=== PATIENT | male | born 1930 | race Caucasian/White ===

== ENCOUNTER 2016-12-09 06:57 | Emergency (ER) | payer OTHER, MEDICARE ==
[~2016-12-09] VITALS: Ht 182.9 cm; Wt 68.0 kg
[~2016-12-09 06:57] MED LIST: ANTIVERT 12.512.5 M1 PO; ASPIRIN81 M4 PO; GLIPIZIDE ER2.5 M1 PO; GLIPIZIDE XL2.5 M1 PO; PREDNISONE 1 MG1 MG PO; PREDNISONE1 MG PO; VITAMIN B-121000 MC3 PO; VITAMIN D1000 UNIT PO
--- NOTE | 2016-12-09 07:09 | ED HEADACHE COMPLAINT ---
History of Present Illness General Chief Complaint: Headache Stated Complaint: "MY HEAD HURTS,DIZZY" Source: patient, family, old records Exam Limitations: no limitations Allergies Coded Allergies: NO KNOWN ALLERGIES (04/22/15) Reconcile Medications Aspirin (Aspirin*) 81 MG TAB.CHEW 1 TAB PO DAILY HEART HEALTH (Reported) Cholecalciferol (Vitamin D3) (Vitamin D) 1,000 UNIT TABLET 1 TAB PO DAILY SUPPLEMENT (Reported) Cyanocobalamin (Vitamin B-12) 1,000 MCG TABLET 1 TAB PO DAILY SUPPLEMENT ( Reported) Glipizide (Glipizide XL) 2.5 MG TAB.ER.24 1 TAB PO BID DIABETES (Reported) Glipizide (Glipizide ER) 2.5 MG TAB.ER.24 1 TAB PO DAILY DIABETES (Reported) Prednisone 1 MG TABLET 3 TAB PO DAILY STEROID (Reported) Triage Note: PT C/O HEADACHE X 2-3 DAYS. STATES HE HAS TROUBLE WALKING SINCE THE ONSET OF THE HEAD PAIN. NEUROS INTACT AT TRIAGE. PT STATES HE HASN'T TRIED ANY OTC PAIN MEDS FOR H/A Triage Nurses Notes Reviewed? yes HPI: Mr. Sharma is an 86-year-old gentleman with past medical history of diabetes and polymyalgia who presents to the emergency department stating that he does not feel right. He also claims that he has felt "out of sorts" over the last 48 hours. The patient states that he was in his normal state of health up until 48 hours ago. Over the last 48 hours he has continued to experience weakness, and gait disturbances. His reports that yesterday prior to coming in he was unsteady on his feet. The patient denies any loss of consciousness and/or head trauma. He denies any changes to his vision. Denies any nausea, vomiting, fever, chills. Patient states that his appetite has been good he has been tolerating by mouth intake well. He denies chest pain, shortness breath, dyspnea or dyspnea on exertion. He last saw his primary care physician in August of this year. (MOLLY BALES,[facility]) Vital Signs & Intake/Output Vital Signs & Intake/Output Vital Signs Date Time Temp Pulse Resp B/P B/P Pulse O2 O2 Flow FiO2 Mean Ox Delivery Rate 12/09 0941 162/80 12/09 0910 97.2 72 20 197/84 99 12/09 0702 97.3 88 20 171/76 97 Room Air Past History Travel History Traveled to [place] past 21 day No Medical History Any Pertinent Medical History? see below for history Neurological: CVA Musculoskeletal: POLYMYALGIA Endocrine: diabetes Tetanus Vaccine: 09/28/98 Surgical History Surgical History: non-contributory Psychosocial History Who do you live with Spouse Services at Home None What is your primary language Estonian Tobacco Use: Never used ETOH Use: denies use Illicit Drug Use: denies illicit drug use Family History Hx Contributory? No (MOLLY BALES,VERA) Review of Systems Review of Systems Constitutional: Denies: see HPI. (MOLLY BALES,VERA) Physical Exam Physical Exam General Appearance: well developed/nourished, no apparent distress, alert, awake Head: atraumatic, normal appearance Eyes: Bilateral: normal appearance, PERRL, EOMI. Ears, Nose, Throat: normal pharynx, normal ENT inspection Neck: normal inspection, supple Respiratory: normal breath sounds, chest non-tender, no respiratory distress Cardiovascular: regular rate/rhythm, systolic murmur (More prominent in Mitral Area) Gastrointestinal: normal bowel sounds, soft, non-tender Back: normal inspection, normal range of motion Extremities: normal inspection, normal capillary refill, normal range of motion, no edema Psychiatric: awake, alert, oriented x 3 Cranial Nerves: normal hearing, normal speech, PERRL Motor/Sensory: no motor/sensory deficits Core Measures Severe Sepsis Present: No Septic Shock Present: No (MOLLY BALES,VERA) Progress Differential Diagnosis: migraine CESAR, musculoskeletal pain Comments: Repeat blood pressure by two different providers: 165/80 and 162/80. (MOLLY BALES,VERA) Plan of Care: Orders Procedure Date/time Status Add-on Test (ER Only) 12/09 0834 Active URINALYSIS 12/09 0758 Complete THYROID STIMULATING HORMONE 12/09 0757 Complete TROPONIN LEVEL 12/09 0757 Complete GLYCOSYLATED HGB 12/09 0757 Complete COMPREHENSIVE METABOLIC PANEL 12/09 0736 Complete CBC WITHOUT DIFFERENTIAL 12/09 0736 Complete EKG 12/09 0736 Active Laboratory Tests 12/09/16 0904: Urine Color YEL, Urine Clarity CLEAR, Urine pH 6.0, Ur Specific [place] 1.015, Urine Protein NEG, Urine Ketones NEG, Urine Nitrite NEG, Urine Bilirubin NEG, Urine Urobilinogen 0.2, Ur Leukocyte Esterase NEG, Ur Microscopic EXAM NOT REQUIRED, Urine Hemoglobin NEG, Urine Glucose 100 H 12/09/16 0758: Troponin I Cancelled, TSH Cancelled 12/09/16 0757: Anion Gap 11, Estimated GFR > 60, BUN/Creatinine Ratio 18.8, Glucose 219 H, Hemoglobin A1c 7.1 H, Calcium 9.0, Total Bilirubin 0.8, AST 18, ALT 35, Alkaline Phosphatase 63, Troponin I < 0.01, Total Protein 6.1 L, Albumin 3.7, Globulin 2.4, Albumin/Globulin Ratio 1.5, TSH 2.090, CBC w Diff NO MAN DIFF REQ, RBC 4.81, MCV 88.3, MCH 29.6, RDW 14.1, MPV 8.3, Gran % 76.0 H, Lymphocytes % 14.2 L, Monocytes % 6.4, Eosinophils % 2.9, Basophils % 0.5, Absolute Granulocytes 5.5, Absolute Lymphocytes 1.0 L, Absolute Monocytes 0.5, Absolute Eosinophils 0.2, Absolute Basophils 0, PUBS MCHC 33.6 Departure Departure Disposition: HOME OR SELF CARE Condition: Stable Clinical Impression Primary Impression: Weakness generalized Referrals: MIRTHA BALES,STEPHANIE (PCP/Family) Additional Instructions: Please follow-up with your primary care physician tomorrow, 12/10/2016. Please inform your primary care physician of this visit to the emergency department. Should you experience any fever, chills, nausea, vomiting over the next 24-48 hours please come back to the emergency department for further workup. Avoid salt, caffine and decongestants. Departure Forms: Customer Survey General Discharge Information (MOLLY BALES,VERA) Resident Co-Sign Statement Statement: ED Attending supervision documentation- [X] I saw and evaluated the patient. I have also reviewed all the pertinent lab results and diagnostic results. I agree with the findings and the plan of care as documented in the Resident's documentation. [] I have reviewed the ED Record and agree with the Resident's documentation. [] Additions or exceptions (if any) to the Resident's note and plan are summarized below: [] (BRIAN BALES,ROMARIO Peterson)
[2016-12-09 08:09] LABS: ABSOLUTE BASOPHIL COUNT 0 /CUMM (0.0-0.2); ABSOLUTE EOSINOPHIL COUNT 0.2 /CUMM (0.0-0.7); ABSOLUTE GRANULOCYTE CT 5.5 /CUMM (1.4-6.5); ABSOLUTE MONOCYTE COUNT 0.5 /CUMM (0.10-0.60); BASOPHIL % 0.5 % (0.0-2.0); EOSINOPHIL % 2.9 % (0-5); HEMATOCRIT 42.5 % (42-52); MEAN CORPUSCULAR HGB 29.6 PG (27.0-31.0); MEAN CORPUSCULAR HGB CONC 33.6 G/DL (33.0-37.0); MEAN CORPUSCULAR VOLUME 88.3 FL (80.0-94.0); MEAN PLATELET VOLUME 8.3 FL (7.4-10.4); PLATELET COUNT 199 /CUMM (130-400); RBC DISTRIBUTION WIDTH 14.1 % (11.5-14.5); RED BLOOD CELL CT 4.81 /CUMM (4.70-6.10); WHITE BLOOD CELL COUNT 7.3 /CUMM (4.8-10.8)
[2016-12-09 09:41] VITALS: BP 162/80
== END 2016-12-09 10:35 ==
LOC: ERH 06:57
PROVIDERS: Student in an Organized Health Care Education/Training Program
DX: R53.1 Weakness (principal); E11.8 Type 2 diabetes mellitus with unspecified complications
CPT/HCPCS: 81003; 93005; 93010

== ENCOUNTER 2017-10-06 08:53 | Inpatient (IN) | payer OTHER, MEDICARE ==
[~2017-10-06] VITALS: Ht 180.3 cm; Wt 68.0 kg
[2017-10-06] MEDS ORDERED: LOSARTAN POTASS25 M1 PO (09:52)
--- NOTE | 2017-10-06 10:17 | RADIOLOGY REPORT ---
EXAMINATION: XR PELVIS X-RAY RIGHT HIP X-ray RIGHT KNEE X-RAY RIGHT ANKLE CLINICAL INFORMATION: Status post fall. Pain. COMPARISON: None TECHNIQUE: AP view of the pelvis. 2 views of the right hip. 4 views of the right knee and 3 views of the right ankle FINDINGS: PELVIS AND RIGHT HIP Bony osteopenia or osteoporosis. Degenerative changes lateral hips. Age indeterminate cortical irregularity noted at the right inferior pubic ramus. Faint lucency projecting upon the right acetabulum on the AP view may represent projectional change. If there is continued clinical concern, further assessment with CT scan recommended. Minor cortical irregularity femoral neck without any definite evidence of acute fracture lines. Degenerative changes lower lumbar spine. RIGHT KNEE Mild bony osteopenia. No evidence of acute fracture or dislocation. Degenerative changes with decrease joint space tibiofemoral and patellofemoral compartments. Osteophyte formations. Small joint effusion. RIGHT ANKLE Bony osteopenia. Degenerative changes medial and lateral aspects right ankle. Ankle mortise is preserved. Cortical irregularity and mild deformity lateral malleolus represents an age indeterminate finding. No acute fracture lines identified. No gross evidence of soft tissue swelling. Inferior and posterior calcaneal spurs. IMPRESSION: 1. Bony osteopenia. 2. Subtle cortical irregularities and faint lucency right hip region. Occult fracture cannot be excluded. Further assessment with CT scan may be of greater value. 3. No acute fracture identified in the right knee, right ankle. Chronic changes.
--- NOTE | 2017-10-06 10:22 | ED GENERAL ADULT ---
History of Present Illness General Chief Complaint: Lower Extremity Injury Stated Complaint: R LEG PAIN S/P FALL Source: patient, family () Exam Limitations: no limitations Vital Signs & Intake/Output Vital Signs & Intake/Output Vital Signs Date Time Temp Pulse Resp B/P B/P Pulse O2 O2 Flow FiO2 Mean Ox Delivery Rate 10/09 1006 80 150/60 10/09 0651 98.3 80 20 150/60 94 Room Air 10/08 2222 98.2 63 19 112/60 95 Room Air 10/08 1452 98.2 73 18 110/60 96 ED Intake and Output 10/09 0000 10/08 1200 Intake Total 240 490 Output Total 650 550 Balance -410 -60 Intake, IV 10 Intake, Oral 240 480 Number 0 Bowel Movements Output, Urine 650 550 Allergies Coded Allergies: No Known Allergies (10/06/17) Triage Note: PT TO ED FOR C/C OF R LOWER BACK/HIP PAIN AND R ANKLE PAIN S/P SLIP ON ICE THIS MORNING WHILE SHOVELING SNOW. PAIN IS WORSE WHEN BEARING WEIGHT. PT DECLINES PAIN MEDS IN TRIAGE. Triage Nurses Notes Reviewed? yes Onset: Abrupt Duration: hour(s): (1), constant, continues in ED Timing: single episode today Injury Environment: home Severity: moderate, severe Severity Numbers: 7 No Modifying Factors: none HPI: 87-year-old male past medical history of previous CVA, diabetes, polymyalgiA presents for evaluation after a fall. Patient states that earlier today he slipped on ice fell on his right hip. He reports pain in the right hip right knee and right ankle. The pain is worse with any type of movement or weightbearing. He states having difficulty walking. No numbness or tingling. He feels like he did not hit his head. No chest pain shortness of breath or dizziness before the fall. No abdominal pain back pain and neck pain. He is not taking any medicine for this pain. He does not take blood thinners. (Vazquez Moya) Reconcile Medications Aspirin (Aspirin*) 81 MG TAB.CHEW 1 TAB PO DAILY HEART HEALTH (Reported) Cholecalciferol (Vitamin D3) (Vitamin D) 1,000 UNIT TABLET 1 TAB PO DAILY SUPPLEMENT (Reported) Cyanocobalamin (Vitamin B-12) 1,000 MCG TABLET 1 TAB PO DAILY SUPPLEMENT ( Reported) Enoxaparin Sodium (Lovenox) 40 MG/0.4 ML SYRINGE 0.4 ML SC DAILY DVT Prophylaxis Glipizide (Glipizide XL) 2.5 MG TAB.ER.24 1 TAB PO TID DIABETES (Reported) Glipizide (Glipizide ER) 2.5 MG TAB.ER.24 1 TAB PO DAILY DIABETES (Reported) Losartan Potassium 25 MG TABLET 1 TAB PO DAILY HIGH BLOOD PRESSURE (Reported) Prednisone 1 MG TABLET 3 TAB PO DAILY STEROID (Reported) (July BALES,Gisela) Past History Travel History Traveled to [place] past 21 day No Medical History Any Pertinent Medical History? see below for history Neurological: CVA Musculoskeletal: POLYMYALGIA Endocrine: diabetes Tetanus Vaccine: 09/28/98 Surgical History Surgical History: non-contributory Psychosocial History Who do you live with Spouse Services at Home None What is your primary language [place] Tobacco Use: Never used ETOH Use: denies use Illicit Drug Use: denies illicit drug use Family History Hx Contributory? No (Vazquez Moya) Review of Systems Review of Systems Constitutional: Reports: no symptoms. EENTM: Reports: no symptoms. Respiratory: Reports: no symptoms. Cardiovascular: Reports: no symptoms. GI: Reports: no symptoms. Genitourinary: Reports: no symptoms. Musculoskeletal: Reports: see HPI, joint pain, joint swelling, muscle pain, muscle stiffness. Skin: Reports: no symptoms. Neurological/Psychological: Reports: no symptoms. Hematologic/Endocrine: Reports: no symptoms. Immunologic/Allergic: Reports: no symptoms. All Other Systems: Reviewed and Negative (Vazquez Moya) Physical Exam Physical Exam General Appearance: well developed/nourished, no apparent distress, alert, awake Head: atraumatic, normal appearance Eyes: Bilateral: normal appearance, PERRL, EOMI. Ears, Nose, Throat: normal pharynx, normal ENT inspection, hearing grossly normal Neck: normal inspection, supple, full range of motion Respiratory: normal breath sounds, chest non-tender, no respiratory distress Cardiovascular: regular rate/rhythm, normal peripheral pulses Peripheral Pulses: 2+ radial (R), 2+ radial (L) Gastrointestinal: normal bowel sounds, soft, non-tender, no organomegaly Back: normal inspection, normal range of motion, PAIN OR PALPATION OF THE SACRAL SPINE ON THE RIGHT SIDE AND PARASPINOUS MUSCLES Extremities: normal inspection, PAIN WITH PALPATION OF THE RIGHT LATERAL HIP RIGHT KNEE DIFFUSELY AND RIGHT ANKLE ON THE LATERAL ASPECT. nO OBVIOUS JOINT SWELLING OR GROSS DEFORMITY. rANGE OF MOTIONOF THE RIGHT LOWER EXTREMITY IS REDUCED DUE TO PAIN. pATIENT IS MOVING REMAINING EXTREMITIES EQUALLY. Neurologic/Psych: no motor/sensory deficits, awake, alert, oriented x 3 Skin: intact, normal color, warm/dry Lymphatic: no anterior cervical willam Core Measures ACS in differential dx? No CVA/TIA Diagnosis: No Sepsis Present: No Sepsis Focused Exam Completed? No (Cayetano PETERS,Vazquez) Progress Differential Diagnoses I considered the following diagnoses in my evaluation of the patient: [Fracture, contusion, sprain, intracranial hemorrhage] Plan of Care: Orders Procedure Date/time Status Turn and Reposition 10/10 831 Active Skin Integrity Protocol 10/10 831 Active Therapeutic Activities 10/08 UNK Complete Therapeutic Exercise 10/08 UNK Complete Gait Training 10/08 UNK Complete Current Medications Sig/Anthony Start time Last Medication Dose Stop Time Status Admin Senna 187 MG AT BEDTIME 10/09 220 AC (Senokot) Docusate Sodium 100 MG DAILY NEEDED 10/09 0700 AC 10/09 (Colace) 0554 Calcium 600 MG BID 10/07 2200 AC 10/09 (Calcium Carbonate 1006 600 MG Tab) Ergocalciferol 50,000 IU Q168 10/07 1515 AC 10/07 (Drisdol) 1737 Oxycodone/ 0.5 TAB Q6P PRN 10/07 1200 AC 10/08 Acetaminophen 1412 (Percocet) Aspirin 81 MG DAILY 10/07 1000 AC 10/09 (Aspirin) 1006 Cholecalciferol 1,000 IU DAILY 10/07 1000 AC 10/09 (Vitamin D) 1006 Cyanocobalamin 1,000 MCG DAILY 10/07 1000 AC 10/09 (Vitamin B12) 1006 Enoxaparin Sodium 40 MG DAILY 10/07 1000 AC 10/09 (Lovenox) 1007 Losartan Potassium 25 MG DAILY 10/07 1000 AC 10/09 (Cozaar) 1006 Prednisone 3 MG DAILY 10/07 1000 AC 10/09 1006 Acetaminophen 975 MG Q8P PRN 10/07 0945 AC (Tylenol) Insulin Aspart 0 TIDAC 10/06 1700 AC 10/09 (NovoLOG) 0806 Ibuprofen 400 MG Q6P PRN 10/06 1445 AC (Motrin) Patient seen and evaluated. He is here for evaluation after a fall. He has pain in his right lower extremity. X-rays are negative for fracture of the right hip right knee area right ankle. A CT scan of the pelvis shows a fracture of the sacrum and pubic ramus on the right side. Patient reported some nausea and was dry heaving. While there was no signs of trauma to the head and he denies any head strike a CT of the head was obtained to rule out trauma. This was negative. Patient is currently unable to ambulate. Normally still and really without any difficulty he was unable to lift his leg out of the bed. He is below his baseline. He is unsafe discharged as he is unable to complete his normal activities and EKG obtained. Patient did end up spiking a temperature of 100. There is no signs of infection on exam however patient does also have an elevated white blood cell count. A portable chest x-ray was added on. Flu swab added on. Patient will be admitted to the hospital for further evaluation and treatment. He'll require physical therapy, serial labs, monitoring of vital signs, case management and placement into an acute rehabilitation. Case discussed with Dr. Mcdowell she agrees. Diagnostic Imaging: Viewed by Me: Radiology Read, CT Scan. Discussed w/RAD: Radiology Read, CT Scan. Radiology Impression: PATIENT: RAMAKRISHNA DYSON PRESENT AGE: 87 PATIENT ACCOUNT NO: [id number] : [birth year] LOCATION: [facility] ORDERING PHYSICIAN: Vazquez PETERS SERVICE DATE: 10/06/17 EXAM TYPE: RAD - XRY-ANKLE 3 OR MORE VIEWS R; XRY-AP PELVIS; XRY-HIP 2-3 VIEWS, RIGHT; XRY-KNEE COMPLETE RIGHT EXAMINATION: XR PELVIS X-RAY RIGHT HIP X-ray RIGHT KNEE X-RAY RIGHT ANKLE CLINICAL INFORMATION: Status post fall. Pain. COMPARISON: None TECHNIQUE: AP view of the pelvis. 2 views of the right hip. 4 views of the right knee and 3 views of the right ankle FINDINGS: PELVIS AND RIGHT HIP Bony osteopenia or osteoporosis. Degenerative changes lateral hips. Age indeterminate cortical irregularity noted at the right inferior pubic ramus. Faint lucency projecting upon the right acetabulum on the AP view may represent projectional change. If there is continued clinical concern, further assessment with CT scan recommended. Minor cortical irregularity femoral neck without any definite evidence of acute fracture lines. Degenerative changes lower lumbar spine. RIGHT KNEE Mild bony osteopenia. No evidence of acute fracture or dislocation. Degenerative changes with decrease joint space tibiofemoral and patellofemoral compartments. Osteophyte formations. Small joint effusion. RIGHT ANKLE Bony osteopenia. Degenerative changes medial and lateral aspects right ankle. Ankle mortise is preserved. Cortical irregularity and mild deformity lateral malleolus represents an age indeterminate finding. No acute fracture lines identified. No gross evidence of soft tissue swelling. Inferior and posterior calcaneal spurs. IMPRESSION: 1. Bony osteopenia. 2. Subtle cortical irregularities and faint lucency right hip region. Occult fracture cannot be excluded. Further assessment with CT scan may be of greater value. 3. No acute fracture identified in the right knee, right ankle. Chronic changes. DICTATED BY: Alma Beauchamp MD DATE/ TIME DICTATED:10/06/17999 OVEREDGE SEWER:SACHIN DATE/TIME TRANSCRIBED: 10/06/17999 CONFIDENTIAL, DO NOT COPY WITHOUT APPROPRIATE AUTHORIZATION., PATIENT: RAMAKRISHNA DYSON PRESENT AGE: 87 PATIENT ACCOUNT NO: [id number] : [birth year] LOCATION: [facility] ORDERING PHYSICIAN: Vazquez PETERS SERVICE DATE: 10/06/17 EXAM TYPE: CAT - CT PELVIS WO IV CONTRAST EXAMINATION: CT PELVIS WITHOUT CONTRAST CLINICAL INFORMATION: Evaluate for occult fracture. COMPARISON: X-ray pelvis and right hip also dated 10/06/2017. TECHNIQUE: Helical scanning was performed with submillimeter collimation through the pelvis. Sagittal and coronal multiplanar 2-D reconstructions were obtained. DLP: 400.58 mGy-cm FINDINGS: PELVIS: No acute intrapelvic pathology. Mild soft tissue swelling/hematoma noted in the medial pelvic soft tissues adjacent to the right inferior pubic ramus . (Series 3 image 33). Atherosclerotic disease with intimal calcification of the aorta and iliac arteries. Mildly enlarged prostate gland. Visualized bowel loops do not demonstrate acute abnormality.. OSSEOUS STRUCTURES: Comminuted mildly displaced and slightly angulated fracture noted in the right inferior pubic ramus (series 2 image 345-3 65). Subtle acute fracture anterior lateral right sacral ala (series 2 image 147). Subtle age indeterminate cortical step off noted in the right acetabulum pubic junction (series 2 image 287). Age indeterminate cortical irregularity superior aspect body of the right pubic bone adjacent to the symphysis pubis. (Series 601 image 52) Degenerative changes bilateral hips. No evidence of acute fracture right femoral neck or intertrochanteric region. Probable chronic ossific density adjacent to the posterior acetabulum (series 2 image 274) IMPRESSION: 1. Acute fractures involving right inferior pubic ramus and anterior right sacral ala. 2. Age indeterminate subtle cortical step off right acetabulum pubic junction. 3. Age indeterminate cortical irregularity superior aspect body of the right pubic bone adjacent to the symphysis pubis. 4. Small hematoma medial pelvic soft tissues adjacent to the right inferior pubic ramus. DICTATED BY: Alma Beauchamp MD DATE/ TIME DICTATED:10/06/171108 OVEREDGE SEWER:SACHIN DATE/TIME TRANSCRIBED: 10/06/171108 CONFIDENTIAL, DO NOT COPY WITHOUT APPROPRIATE AUTHORIZATION., PATIENT: RAMAKRISHNA DYSON PRESENT AGE: 87 PATIENT ACCOUNT NO: [id number] : [birth year] LOCATION: [facility] ORDERING PHYSICIAN: Vazquez PETERS SERVICE DATE: 10/06/17 EXAM TYPE: CAT - CT CERV SPINE WO IV CONTRAST ; CT HEAD WO IV CONTRAST EXAMINATION: CT HEAD WITHOUT CONTRAST CT CERVICAL SPINE WITHOUT CONTRAST CLINICAL INFORMATION: Fall. Unknown head strike. Now vomiting. COMPARISON: Head CT 02/01/2009 and 02/11/2016. TECHNIQUE: CT of the head and cervical spine were performed without intravenous contrast. Multiplanar reformats were rendered and reviewed. DLP: 942 mGy-cm. FINDINGS: CT head: There is no intracranial hemorrhage, extra-axial collection, or calvarial fracture. There is no acute infarct or mass. There is moderate confluent and patchy hypoattenuation in the bilateral cerebral white matter compatible with moderate small vessel ischemic changes. There is an old infarct in the right cerebellum. There is mild diffuse brain parenchymal volume loss with prominence of the ventricles and sulci. The paranasal sinuses and mastoid air cells are clear. There are degenerative changes at the temporomandibular joints. CT cervical spine: The cervical vertebral body heights are maintained. There is trace anterolisthesis of C4 on C5. No fracture is seen. The craniocervical junction is intact with degenerative changes noted. There is multilevel degenerative change with intervertebral disc height loss, endplate spurring, and uncovertebral and facet arthropathy. Disc height loss is most pronounced at C4-C5, C5-C6, and C6- C7. There is prominent anterior osteophytic spurring extending from C4 to C7. Facet arthropathy is most advanced on the right at C2-C3 and C3-C4 and on the left at C3-C4 and C6-C7. There is no high-grade osseous encroachment on the spinal canal. There is multilevel neural foraminal stenosis which is severe at multiple levels. The lung apices are clear. There are atheromatous changes involving the carotid arteries. IMPRESSION: CT head: No acute intracranial abnormality. Moderate small vessel ischemic changes. Old right cerebellar infarct. CT cervical spine: No cervical spine fracture or tobacco malalignment. Multilevel degenerative spondylotic changes without high-grade osseous encroachment on the spinal canal. DICTATED BY: Ana Garrett MD DATE/TIME DICTATED:10/06/171314 OVEREDGE SEWER:SACHIN DATE/TIME TRANSCRIBED:1314 CONFIDENTIAL, DO NOT COPY WITHOUT APPROPRIATE AUTHORIZATION. Initial ED EKG: SINUS TACHYCARDIA RATE 108, MULTIFOCAL pvc, RBBB (Cayetano PETERS,Vazquez) Departure Departure Disposition: STILL A PATIENT Condition: Stable Clinical Impression Primary Impression: Fracture of pubic ramus Qualifiers: Encounter type: initial encounter Fracture type: closed Laterality: right Qualified Code: S32.591A - Other specified fracture of right pubis, initial encounter for closed fracture Secondary Impressions: Gait instability Sacral fracture Qualifiers: Encounter type: initial encounter Zone of sacrum fracture: unspecified portion of sacrum Fracture type: closed Qualified Code: S32.10XA - Unspecified fracture of sacrum, initial encounter for closed fracture Referrals: Wendy Hidalgo MD (PCP/Family) Departure Forms: Customer Survey General Discharge Information Admission Note Spoke With: Lc BALES,Amy Documentation of Exam: Documentation of any treatments & extenuating circumstances including Concerns Regarding Discharge (functional status, medication knowledge or non-compliance, living conditions, etc.) that warrant an admission rather than observation: [ Patient is currently unable to ambulate after falling and fracturing his pubic rami on the right side and his sacrum on the right side. Patient is not safe to go home. He is not able to complete his ADLs. Additionally patient has an elevated white blood cell count had a low-grade temp of 100. There is no obvious signs of infection on exam. Patient will require physical therapy, serial labs, occupational therapy, case management, pain control] (Vazquez Moya) Departure Prescriptions: Current Visit Scripts Enoxaparin Sodium (Lovenox) 0.4 ML SC DAILY #30 SYR PA/SHELL GRADER Co-Sign Statement Statement: ED Attending supervision documentation- [X] I saw and evaluated the patient. I have also reviewed all the pertinent lab results and diagnostic results. I agree with the findings and the plan of care as documented in the PA's/SHELL GRADER's documentation. [X] I have reviewed the ED Record and agree with the PA's/SHELL GRADER's documentation. [] Additions or exceptions (if any) to the PAs/SHELL GRADER's note and plan are summarized below: [] (July BALES,Gisela) Critical Care Note Critical Care Note Critical Care Time: non-applicable (Vazquez Moya)
--- NOTE | 2017-10-06 11:42 | CT SCAN REPORT ---
EXAMINATION: CT PELVIS WITHOUT CONTRAST CLINICAL INFORMATION: Evaluate for occult fracture. COMPARISON: X-ray pelvis and right hip also dated 10/06/2017. TECHNIQUE: Helical scanning was performed with submillimeter collimation through the pelvis. Sagittal and coronal multiplanar 2-D reconstructions were obtained. DLP: 400.58 mGy-cm FINDINGS: PELVIS: No acute intrapelvic pathology. Mild soft tissue swelling/hematoma noted in the medial pelvic soft tissues adjacent to the right inferior pubic ramus . (Series 3 image 33). Atherosclerotic disease with intimal calcification of the aorta and iliac arteries. Mildly enlarged prostate gland. Visualized bowel loops do not demonstrate acute abnormality.. OSSEOUS STRUCTURES: Comminuted mildly displaced and slightly angulated fracture noted in the right inferior pubic ramus (series 2 image 345-3 65). Subtle acute fracture anterior lateral right sacral ala (series 2 image 147). Subtle age indeterminate cortical step off noted in the right acetabulum pubic junction (series 2 image 287). Age indeterminate cortical irregularity superior aspect body of the right pubic bone adjacent to the symphysis pubis. (Series 601 image 52) Degenerative changes bilateral hips. No evidence of acute fracture right femoral neck or intertrochanteric region. Probable chronic ossific density adjacent to the posterior acetabulum (series 2 image 274) IMPRESSION: 1. Acute fractures involving right inferior pubic ramus and anterior right sacral ala. 2. Age indeterminate subtle cortical step off right acetabulum pubic junction. 3. Age indeterminate cortical irregularity superior aspect body of the right pubic bone adjacent to the symphysis pubis. 4. Small hematoma medial pelvic soft tissues adjacent to the right inferior pubic ramus.
[2017-10-06 12:28] LABS: ABSOLUTE BASOPHIL COUNT 0 /CUMM (0.0-0.2); ABSOLUTE EOSINOPHIL COUNT 0 /CUMM (0.0-0.7); ABSOLUTE GRANULOCYTE CT 15.9 /CUMM (1.4-6.5); ABSOLUTE LYMPH COUNT 0.9 /CUMM (1.2-3.4); ABSOLUTE MONOCYTE COUNT 0.8 /CUMM (0.10-0.60); BASOPHIL % 0.2 % (0.0-2.0); EOSINOPHIL % 0.1 % (0-5); GRANULOCYTE % 90.4 % (42.2-75.2); HEMATOCRIT 42.9 % (42-52); MEAN CORPUSCULAR HGB 29.7 PG (27.0-31.0); MEAN CORPUSCULAR HGB CONC 34.3 G/DL (33.0-37.0); MEAN CORPUSCULAR VOLUME 86.8 FL (80.0-94.0); PLATELET COUNT 176 /CUMM (130-400); RED BLOOD CELL CT 4.94 /CUMM (4.70-6.10); WHITE BLOOD CELL COUNT 17.6 /CUMM (4.8-10.8)
--- NOTE | 2017-10-06 13:30 | CT SCAN REPORT ---
EXAMINATION: CT HEAD WITHOUT CONTRAST CT CERVICAL SPINE WITHOUT CONTRAST CLINICAL INFORMATION: Fall. Unknown head strike. Now vomiting. COMPARISON: Head CT 02/01/2009 and 02/11/2016. TECHNIQUE: CT of the head and cervical spine were performed without intravenous contrast. Multiplanar reformats were rendered and reviewed. DLP: 942 mGy-cm. FINDINGS: CT head: There is no intracranial hemorrhage, extra-axial collection, or calvarial fracture. There is no acute infarct or mass. There is moderate confluent and patchy hypoattenuation in the bilateral cerebral white matter compatible with moderate small vessel ischemic changes. There is an old infarct in the right cerebellum. There is mild diffuse brain parenchymal volume loss with prominence of the ventricles and sulci. The paranasal sinuses and mastoid air cells are clear. There are degenerative changes at the temporomandibular joints. CT cervical spine: The cervical vertebral body heights are maintained. There is trace anterolisthesis of C4 on C5. No fracture is seen. The craniocervical junction is intact with degenerative changes noted. There is multilevel degenerative change with intervertebral disc height loss, endplate spurring, and uncovertebral and facet arthropathy. Disc height loss is most pronounced at C4-C5, C5-C6, and C6-C7. There is prominent anterior osteophytic spurring extending from C4 to C7. Facet arthropathy is most advanced on the right at C2-C3 and C3-C4 and on the left at C3-C4 and C6-C7. There is no high-grade osseous encroachment on the spinal canal. There is multilevel neural foraminal stenosis which is severe at multiple levels. The lung apices are clear. There are atheromatous changes involving the carotid arteries. IMPRESSION: CT head: No acute intracranial abnormality. Moderate small vessel ischemic changes. Old right cerebellar infarct. CT cervical spine: No cervical spine fracture or tobacco malalignment. Multilevel degenerative spondylotic changes without high-grade osseous encroachment on the spinal canal.
--- NOTE | 2017-10-06 13:46 | History & Physical ---
Jacki BALES,Vazquez 10/06/17 1345: General Information and HPI History of Present Illness: Mr. 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 The patient does not remember the incident very well. He does know that he was shoveling snow this morning and then fell as a consequence of that. He denies any prodromal nausea, vomiting, or other symptoms. He does not believe he lost consciousness or struke his head. His did not witness the fall but did hear him holler when he fell. When she looked out the window, she believes he was on his left side. The patient further denies any chest pain, palpitations, shortness of breath, abd pain, headache, numbness, tingling, or dizziness. He does endorse some right hip/leg pain. He says that he could walk immediately after the fall but now does not believe he could. The patient is a lifetime nonsmoker and does not consume alcohol or recreational drugs. Allergies/Medications Allergies: Coded Allergies: No Known Allergies (10/06/17) Past History Travel History Traveled to [place] past 21 day No Medical History Neurological: CVA Musculoskeletal: POLYMYALGIA Endocrine: diabetes Tetanus Vaccine: 09/28/98 Surgical History Surgical History: non-contributory Past Family/Social History Psychosocial History Services at Home: None Smoking Status: Never Smoked ETOH Use: denies use Illicit Drug Use: denies illicit drug use Review of Systems Review of Systems Constitutional: Reports: no symptoms. EENTM: Reports: no symptoms. Cardiovascular: Reports: no symptoms. Respiratory: Reports: no symptoms. GI: Reports: no symptoms. Genitourinary: Reports: no symptoms. Musculoskeletal: Reports: see HPI. Skin: Reports: no symptoms. Neurological/Psychological: Reports: no symptoms. Hematologic/Endocrine: Reports: no symptoms. Immunologic/Allergic: Reports: no symptoms. All Other Systems: Reviewed and Negative Exam & Diagnostic Data Last 24 Hrs of Vital Signs/I&O Vital Signs Date Time Temp Pulse Resp B/P B/P Pulse O2 O2 Flow FiO2 Mean Ox Delivery Rate 10/06 1203 98.2 10/06 1202 100.0 94 20 140/76 94 Room Air 10/06 1100 70 20 150/66 96 Room Air 10/06 0949 Room Air 10/06 0856 96.0 77 15 142/68 95 Room Air Room Air Intake & Output 10/06 1600 10/06 0800 03 0000 Intake Total 60 Output Total 200 Balance -140 Intake, Oral 60 Output, Urine 200 Patient 70.307 kg Weight Weight Reported by Patient Measurement Method Physical Exam General Appearance Alert, Oriented X3, Cooperative, No Acute Distress Skin No Rashes, No Breakdown, No Significant Lesion Cardiovascular tachycardic Lungs Clear to Auscultation Abdomen Normal Bowel Sounds, Soft, No Tenderness Neurological Normal Speech Extremities Tenderness over bony prominances of hip on right. Unable to lift either leg on straight leg exam. Declined walking exam at this time. Vascular Normal Pulses, Pulses Symmetrical Last 24 Hrs of Labs/Tim: Laboratory Tests 10/06/17 1217: Urinalysis LIGHT H, Urine Color YEL, Urine Clarity CLEAR, Urine pH 6.0, Ur Specific [place] 1.020, Urine Protein TRACE H, Urine Ketones 15 H, Urine Nitrite NEG, Urine Bilirubin NEG, Urine Urobilinogen 1.0, Ur Leukocyte Esterase NEG, Ur Microscopic SEDIMENT EXAMINED, Urine RBC RARE, Urine WBC 1-3 H, Ur Epithelial Cells RARE, Urine Bacteria FEW H, Hyaline Casts RARE H, Urine Mucus MOD H, Urine Hemoglobin NEG, Urine Glucose NEG 10/06/17 1215: Anion Gap 12, Estimated GFR > 60, BUN/Creatinine Ratio 22.9, Glucose 173 H, Calcium 9.5, Total Bilirubin 1.3, AST 34, ALT 46, Alkaline Phosphatase 84, Troponin I 0.01, Total Protein 6.2 L, Albumin 3.9, Globulin 2.3, Albumin/ Globulin Ratio 1.7, Lipase 171, CBC w Diff MAN DIFF ORDERED, RBC 4.94, MCV 86.8, MCH 29.7, MCHC 34.3, RDW 14.0, MPV 8.0, Gran % 90.4 H, Lymphocytes % 4.9 L, Monocytes % 4.4, Eosinophils % 0.1, Basophils % 0.2, Absolute Granulocytes 15.9 H, Segmented Neutrophils 82 H, Band Neutrophils 1, Absolute Lymphocytes 0.9 L, Lymphocytes 11 L, Monocytes 5, Absolute Monocytes 0.8 H, Eosinophils 1, Absolute Eosinophils 0, Absolute Basophils 0, Nucleated RBCs 1 H, Platelet Estimate VERIFIED BY SMEAR, Normocytic RBCs VERIFIED, Normochromic RBCs VERIFIED Microbiology 03/08 1430 URINE ROUT: Urine Culture - ORD 10/06 1429 BLOOD: Blood Culture - ORD 10/06 1429 BLOOD: Blood Culture - ORD Assessment/Plan Assessment: Mr. 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 On presentation, vital signs were T 96.0, HR 77, RR 15, BP 142/68, saturating 95 % on room air. Laboratories are significant for white blood cell count 17.6, hemoglobin 14.7, 90.4% granulocytes, normal BEP, negative LFTs, negative troponin. Urinalysis showed 15 ketones and trace protein. X-ray of the right pelvis, hip, knee, ankle revealed bony osteopenia, subtle cortical irregularities and faint lucency in the right hip region but no acute fracture in the right knee or right ankle. CT of the pelvis revealed a communicated mildly displaced and slightly angulated fracture noted in the right inferior pubic ramus and a subtle acute fracture in the anterior lateral right sacral ala. There is also a small hematoma in the medial pelvic soft tissues adjacent to the right inferior pubic ramus. Chest x-ray and CT head was negative for any acute process. He was treated with ondansetron and acetaminophen in the emergency room. He will be admitted to general medicine and treated for the following problems: 1. Fragility fracture of the pelvis, type III 2. Leukocytosis 3. Sinus tachycardia 4. Fever #Fragility fracture of the pelvis, type III: Patient presents after a mechanical fall found to have a displaced right inferior pubic ramus and sacral ala fracture. His advanced age and chronic prednisone therapy likely contributed to his risk for fracture. We will likely pursue conservative management and early ambulation. -Pain control, avoid opioids if possible -Consult orthopedic surgery -PT evaluation #Leukocytosis: Patient has an unexplained leukocytosis, fever, and was slightly tachycardic on exam. Urinalysis was negative. There does not seem to be any source of infection at this time. -Urine and blood cultures -Continue to monitor #Chronic medical problems: -Continue home prednisone, aspirin, losartan, vitamin D -Hold oral hypoglycemics -Insulin sliding scale DVT prophylaxis with enoxaparin Consistent carbohydrate 2 diet Full code As Ranked By This Provider Problem List: 1. Fracture of right inferior pubic ramus Core Measures/Misc (04/17) Acute Coronary Syndrome ACS Diagnosis: No Congestive Heart Failure Congestive Heart Failure Diagnosis No Cerebrovascular Accident CVA/TIA Diagnosis: No VTE (View Protocol) VTE Risk Factors Age>40 No Mechanical VTE Prophylaxis d/t N/A MechProphylax Ordered No VTE Pharm Prophylaxis d/t NA PharmProphylax ordered Sepsis (View protocol) Sepsis Present: No Kendy Mosquera MD 10/06/17 1412: General Information and HPI Allergies/Medications Home Med list Aspirin (Aspirin*) 81 MG TAB.CHEW 1 TAB PO DAILY HEART HEALTH (Reported) Cholecalciferol (Vitamin D3) (Vitamin D) 1,000 UNIT TABLET 1 TAB PO DAILY SUPPLEMENT (Reported) Cyanocobalamin (Vitamin B-12) 1,000 MCG TABLET 1 TAB PO DAILY SUPPLEMENT ( Reported) Glipizide (Glipizide XL) 2.5 MG TAB.ER.24 1 TAB PO TID DIABETES (Reported) Glipizide (Glipizide ER) 2.5 MG TAB.ER.24 1 TAB PO DAILY DIABETES (Reported) Losartan Potassium 25 MG TABLET 1 TAB PO DAILY HIGH BLOOD PRESSURE (Reported) Prednisone 1 MG TABLET 3 TAB PO DAILY STEROID (Reported) Resident Review Statement Resident Statement: examined this patient, discussed with procurement intern, agreed with procurement intern, reviewed EMR data (avail), reviewed images, amended to note Other Findings: 87 YO M with past medical history of previous CVA, diabetes, polymyalgia on chronic prednisone presents for evaluation after a fall. Presents from home after slipping and falling in front of his driveway while shoveling snow with pain and difficulty ambulating. He remembers that he fell but can't remember how he fell, no tingling or numbness or weakness. He denies loss of consciousness, palpitations, chest pain, SOB, dizzines, confusion or head strike when he fell. He was able to get up and walked back into his house with his 's help . He denies fevers/chills, nausea, vomiting or diarrhea, cough or urinary symptoms in the preceeding days. He leads an active lifestyle and walks about 1 hr everyday. He is independent of his ADLs and ambulates without a cane or walker. Patient is AAOx 3, dry mucous membranes, tachycardic with a 3/6 systolic murmur, chest clear, non-tender abd, Rt hip tender to palpation, no echymosis or open wound, sensation and pulses present and equal bilaterally, no pedal edema, gait not tested due to pain Assessment 1. Rt sided Pubic rami and sacral ala fracture s/p mechanical fall 2. Leukocytosis 3. Osteopenia 4. Chronic conditions-HTN, DM, polymyalgia Plan Admit to GM floor Plan is for conservative mgt of fractures; will follow surgery recommendations Physical therapy consult placed Obtain urine and blood cultures-pt spiked a temp of 100 in the ED and has a WBC of 13.3 Check Vit D IVF normal saline at 75ml/hr Adequate pain control Hold his oral hypoglycemic meds Start Insulin SS at a low dose and titrate up as needed Fingerstick glucose TIDAC/HS Resume his other impt home meds DVT ppx with sc heparin FC Follow attending recommendations Lorraine Ruiz MD 10/06/17 1456: Attending MD Review Statement Attending Statement Attending MD Statement: examined this patient, discuss w/resident/PA/UTILITY WORKER, agreed w/resident/PA/UTILITY WORKER, reviewed EMR data (avail) Attending Assessment/Plan: 87M PMH diabetes mellitus, 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 Patient complains of pain that improved with Motrin and IV Tylenol. He was febrile to 100 here with WBC 17, but reports no infectious symptoms. 1. Right inferior pubic ramus and anterior lateral right sacral ala frature, acute 2. Fall, initial 3. Fever of unknown etiology 4. Leukocytosis Plan - Admit to general medicine - Orthopedic consult - Pain control with Motrin and Tylenol, Morphine 2mg IV PRN severe pain - Bowel regimen - PT eval - Continue home mediations - DVT PPx
--- NOTE | 2017-10-06 14:17 | RADIOLOGY REPORT ---
EXAMINATION: XR PORTABLE CHEST CLINICAL INFORMATION: Fever and weakness COMPARISON: 10/29/2011 TECHNIQUE: Portable frontal view of the chest was obtained. FINDINGS: No infiltrate is seen here. No failure. The right lateral lung is clipped. No significant effusion. The hilar structures are comparable. IMPRESSION: Negative acute portable chest.
--- NOTE | 2017-10-06 14:58 | Admission Certification ---
Admission Certification Certification Statement - As attending physician, I certify that at the time of - admission, based on clinical presentation, severity of - symptoms, need for further diagnostic testing and - therapeutic interventions, and risk of adverse outcomes - without in-hospital treatment, in my clinical assessment, - this patient requires an acute hospital stay for a minimum - of two nights or longer. I have also considered psychsocial - factors such as support system, advanced age, financial - issues, cognitive issues, and failed out-patient treatments, - past re-admission history, safety of patient, and lack of - compliance as applicable. Specific rationale supporting this admission is: Fall with pelvis fracture
[2017-10-06] MEDS ORDERED: GLIPIZIDE ER2.5 M1 PO (16:02)
[2017-10-06 22:46] VITALS: BP 146/80
[2017-10-07 06:42] VITALS: BP 134/68
--- NOTE | 2017-10-07 06:57 | PN- Housestaff ---
See Addendum Subjective Follow-up For: Pelvis fracture Subjective: No overnight events. He feels well this morning, no pain, fever, chills, CP, SOB. Review of Systems Constitutional: Reports: no symptoms. EENTM: Reports: no symptoms. Cardiovascular: Reports: no symptoms. Respiratory: Reports: no symptoms. Gastrointestinal: Reports: no symptoms. Genitourinary: Reports: no symptoms. Musculoskeletal: Reports: no symptoms. Skin: Reports: no symptoms. Neurological/Psychological: Reports: no symptoms. Hematologic/Endocrine: Reports: no symptoms. Immunologic/Allergic: Reports: no symptoms. Objective Last 24 Hrs of Vital Signs/I&O Vital Signs Date Time Temp Pulse Resp B/P B/P Pulse O2 O2 Flow FiO2 Mean Ox Delivery Rate 10/07 0642 98.1 89 18 134/68 92 10/06 2246 98.7 86 16 146/80 97 Room Air 10/06 1700 98.0 90 20 116/56 92 Room Air 10/06 1203 98.2 10/06 1202 100.0 94 20 140/76 94 Room Air 10/06 1100 70 20 150/66 96 Room Air 10/06 0949 Room Air 10/06 0856 96.0 77 15 142/68 95 Room Air Room Air Intake & Output 10/07 0800 10/07 0000 10/06 1600 Intake Total 420 60 Output Total 400 200 Balance 20 -140 Intake, IV 300 Intake, Oral 120 60 Output, Urine 400 200 Patient 68.039 kg 70.307 kg Weight Weight Bed scale Reported by Patient Measurement Method Physical Exam General Appearance: Alert, Oriented X3, Cooperative, No Acute Distress Cardiovascular: Regular Rate, Normal S1, Normal S2 Lungs: Clear to Auscultation Abdomen: Normal Bowel Sounds, Soft, No Tenderness Extremities: No Edema, Normal Pulses, No Tenderness/Swelling, Unable to raise legs much, pain on passive flexion of hips. Tenderness over bony prominences without obvious bruising. Current Medications: Current Medications Sig/Anthony Start time Last Medication Dose Route Stop Time Status Admin Acetaminophen 650 MG Q6PRN PRN 10/06 1445 AC 10/07 PO 0515 Acetaminophen 1,000 MG Q6P PRN 10/06 1430 AC N/A 1 UNIT IV Acetaminophen 0 .STK-MED ONE 10/06 938 DC PO Acetaminophen 975 MG ONCE ONE 10/06 914 DC 10/06 PO 10/06 0916 0946 Aspirin 81 MG DAILY 10/07 1000 AC PO Cholecalciferol 1,000 IU DAILY 10/07 1000 AC PO Cyanocobalamin 1,000 MCG DAILY 10/07 1000 AC PO Docusate Sodium 100 MG DAILY NEEDED PRN 10/07 0700 AC PO Heparin Sodium 0 .STK-MED ONE 10/06 1451 DC (Porcine) .ROUTE Heparin Sodium 5,000 UNIT Q8 10/06 1439 AC 10/07 (Porcine) SC 0514 Ibuprofen 400 MG Q6P PRN 10/06 1445 AC PO Ibuprofen 400 MG Q6P PRN 10/06 1430 DC PO Insulin Aspart 0 TIDAC 10/06 1700 AC SC Losartan Potassium 25 MG DAILY 10/07 1000 AC PO Ondansetron HCl 4 MG ONCE ONE 10/06 1145 DC 10/06 PO 10/06 1146 1130 Ondansetron HCl 0 .STK-MED ONE 10/06 1141 DC PO Prednisone 3 MG DAILY 10/07 1000 AC PO Prednisone 3 MG DAILY 10/07 1000 CAN PO Senna 187 MG AT BEDTIME NEED.. 10/07 0700 AC PO Sodium Chloride 1,000 ML .[id number] 10/06 1445 DC 10/07 IV 0109 Tramadol HCl 50 MG Q6 PRN 10/06 1430 CAN PO Last 24 Hrs of Lab/Tim Results Last 24 Hrs of Labs/Mics: Laboratory Tests 10/06/17 1217: Urinalysis LIGHT H, Urine Color YEL, Urine Clarity CLEAR, Urine pH 6.0, Ur Specific [place] 1.020, Urine Protein TRACE H, Urine Ketones 15 H, Urine Nitrite NEG, Urine Bilirubin NEG, Urine Urobilinogen 1.0, Ur Leukocyte Esterase NEG, Ur Microscopic SEDIMENT EXAMINED, Urine RBC RARE, Urine WBC 1-3 H, Ur Epithelial Cells RARE, Urine Bacteria FEW H, Hyaline Casts RARE H, Urine Mucus MOD H, Urine Hemoglobin NEG, Urine Glucose NEG 10/06/17 1215: Anion Gap 12, Estimated GFR > 60, BUN/Creatinine Ratio 22.9, Glucose 173 H, Lactic Acid 2.0, Calcium 9.5, Total Bilirubin 1.3, AST 34, ALT 46, Alkaline Phosphatase 84, Troponin I 0.01, Total Protein 6.2 L, Albumin 3.9, Globulin 2.3 , Albumin/Globulin Ratio 1.7, Lipase 171, CBC w Diff MAN DIFF ORDERED, RBC 4.94, MCV 86.8, MCH 29.7, MCHC 34.3, RDW 14.0, MPV 8.0, Gran % 90.4 H, Lymphocytes % 4.9 L, Monocytes % 4.4, Eosinophils % 0.1, Basophils % 0.2, Absolute Granulocytes 15.9 H, Segmented Neutrophils 82 H, Band Neutrophils 1, Absolute Lymphocytes 0.9 L, Lymphocytes 11 L, Monocytes 5, Absolute Monocytes 0.8 H, Eosinophils 1, Absolute Eosinophils 0, Absolute Basophils 0, Nucleated RBCs 1 H , Platelet Estimate VERIFIED BY SMEAR, Normocytic RBCs VERIFIED, Normochromic RBCs VERIFIED Microbiology 10/06 1655 BLOOD: Blood Culture - RECD 10/06 1604 BLOOD: Blood Culture - RECD 10/06 1531 NASOPHARYN: Influenza Virus A & B Rapid Smear - COMP 10/06 1217 URINE ROUT: Urine Culture - RECD Assessment/Plan Assessment: Mr. 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 Problem List: 1. Fragility fracture of the pelvis, type III 2. Leukocytosis 3. Sinus tachycardia 4. Fever #Fragility fracture of the pelvis, type III: Patient presents after a mechanical fall found to have a displaced right inferior pubic ramus and sacral ala fracture. His advanced age and chronic prednisone therapy likely contributed to his risk for fracture. We will likely pursue conservative management and early ambulation. -Pain control, avoid opioids if possible -Appreciate orthopedic surgery recommendations -PT evaluation #Leukocytosis: Patient has an unexplained leukocytosis, fever, and was slightly tachycardic on exam. Urinalysis was negative. There does not seem to be any source of infection at this time. He has remained afebrile since admission, tachycardia has resolved. -Urine and blood cultures -Continue to monitor #Chronic medical problems: -Continue home prednisone, aspirin, losartan, vitamin D -Hold oral hypoglycemics -Insulin sliding scale DVT prophylaxis with enoxaparin Consistent carbohydrate 2 diet Full code Problem List: 1. Fracture of right inferior pubic ramus Pain Ratin Pain Location: no Pain Goal: Remain pain free Pain Plan: see a/p Tomorrow's Labs & Rationales: no
[2017-10-07 08:11] LABS: ABSOLUTE BASOPHIL COUNT 0.1 /CUMM (0.0-0.2); ABSOLUTE EOSINOPHIL COUNT 0.3 /CUMM (0.0-0.7); ABSOLUTE GRANULOCYTE CT 8.3 /CUMM (1.4-6.5); ABSOLUTE LYMPH COUNT 0.9 /CUMM (1.2-3.4); ABSOLUTE MONOCYTE COUNT 0.6 /CUMM (0.10-0.60); BASOPHIL % 0.7 % (0.0-2.0); EOSINOPHIL % 3.1 % (0-5); GRANULOCYTE % 81.4 % (42.2-75.2); HEMATOCRIT 40.4 % (42-52); MEAN CORPUSCULAR HGB 29.6 PG (27.0-31.0); MEAN CORPUSCULAR HGB CONC 33.6 G/DL (33.0-37.0); MEAN PLATELET VOLUME 8.6 FL (7.4-10.4); PLATELET COUNT 146 /CUMM (130-400); RBC DISTRIBUTION WIDTH 14.3 % (11.5-14.5); RED BLOOD CELL CT 4.59 /CUMM (4.70-6.10); WHITE BLOOD CELL COUNT 10.2 /CUMM (4.8-10.8)
[2017-10-07] MEDS ORDERED: LOVENOX40 MG/0.1 SC (09:39)
--- NOTE | 2017-10-07 09:40 | Patient Discharge Instructions ---
Discharge Instructions General Discharge Information You were seen/treated for: Pubic ramus fracture Watch for these problems: Fever, chest pain, shortness of breath Special Instructions: Please take all medications as directed. Please follow-up with the primary care. Please follow-up with orthopedic surgery in 6 weeks for repeat pelvic x-rays. Diet Continue normal diet: Yes Activity Full Activity/No Limits: Yes Acute Coronary Syndrome Inclusion Criteria At DC or during hospital stay patient has or had the following: ACS DIAGNOSIS No Discharge Core Measures Meds if any: Prescribed or Continued at Discharge Meds if any: NOT Prescribed or Continued at Discharge Congestive Heart Failure Inclusion Criteria At DC or during hospital stay patient has or had the following: CHF DIAGNOSIS No Discharge Core Measures Meds if any: Prescribed or Continued at Discharge Meds if any: NOT Prescribed or Continued at Discharge Cerebrovascular accident Inclusion Criteria At DC or during hospital stay patient has or had the following: CVA/TIA Diagnosis No Discharge Core Measures Meds if any: Prescribed or Continued at Discharge Meds if any: NOT Prescribed or Continued at Discharge Venous thromboembolism Inclusion Criteria VTE Diagnosis No VTE Type NONE VTE Confirmed by (Test) NONE Discharge Core Measures - Per Current guidelines, there needs to be overlap - treatment for the first 5 days of Warfarin therapy. - If discharged on Warfarin prior to 5 days of - overlap therapy, the patient will need to be - assessed for post discharge needs including - *Post discharge parental anticoagulation - *Warfarin and/or parental anticoagulation education - *Follow up date to check INR post discharge At least 5 days overlap therapy as Inpatient No Meds if any: Prescribed or Continued at Discharge Note: Overlap Therapy is Warfarin and Anticoagulant Meds if any: NOT Prescribed or Continued at Discharge
--- NOTE | 2017-10-07 09:59 | Cons- Orthopedic ---
General Information and HPI Consulting Request Date of Consult: 10/07/17 Requested By: Lorraine Ruiz MD History of Present Illness: 87 yr old male with right hip pain s/p fall. went to er x-rays and ct scan show a right inferior pubic rami fracture with right sacral ala fracture. patient states has pain with wb. rates pain as an 8. Allergies/Medications Allergies: Coded Allergies: No Known Allergies (10/06/17) Home Med List: Aspirin (Aspirin*) 81 MG TAB.CHEW 1 TAB PO DAILY HEART HEALTH (Reported) Cholecalciferol (Vitamin D3) (Vitamin D) 1,000 UNIT TABLET 1 TAB PO DAILY SUPPLEMENT (Reported) Cyanocobalamin (Vitamin B-12) 1,000 MCG TABLET 1 TAB PO DAILY SUPPLEMENT ( Reported) Enoxaparin Sodium (Lovenox) 40 MG/0.4 ML SYRINGE 0.4 ML SC DAILY DVT Prophylaxis Glipizide (Glipizide XL) 2.5 MG TAB.ER.24 1 TAB PO TID DIABETES (Reported) Glipizide (Glipizide ER) 2.5 MG TAB.ER.24 1 TAB PO DAILY DIABETES (Reported) Losartan Potassium 25 MG TABLET 1 TAB PO DAILY HIGH BLOOD PRESSURE (Reported) Prednisone 1 MG TABLET 3 TAB PO DAILY STEROID (Reported) Past History Medical History Blood Transfusion Hx: No Neurological: CVA EENT: NONE Cardiovascular: NONE Respiratory: NONE Gastrointestinal: NONE Hepatic: NONE Renal: NONE Musculoskeletal: POLYMYALGIA Psychiatric: NONE Endocrine: diabetes Blood Disorders: NONE Cancer(s): NONE ASSISTANT CURATOR/Reproductive: NONE Surgical History Pertinent Surgical History: 1 Psychosocial History Where Do You Live? Home Services at Home: None Smoking Status: Never Smoked ETOH Use: denies use Illicit Drug Use: denies illicit drug use Review of Systems Review of Systems: see chart Exam & Diagnostic Data Vital Signs and I&O Vital Signs Date Time Temp Pulse Resp B/P B/P Pulse O2 O2 Flow FiO2 Mean Ox Delivery Rate 10/07 0902 Room Air Room Air 10/07 0642 98.1 89 18 134/68 92 10/06 2246 98.7 86 16 146/80 97 Room Air 10/06 1700 98.0 90 20 116/56 92 Room Air 10/06 1203 98.2 10/06 1202 100.0 94 20 140/76 94 Room Air 10/06 1100 70 20 150/66 96 Room Air Intake & Output 10/07 1600 10/07 0000 10/06 1600 10/06 0810/06 0000 Intake Total 720 420 60 Output Total 350 400 200 Balance 370 20 -140 Intake, IV 600 300 Intake, Oral 120 120 60 Number 0 Bowel Movements Output, Urine 350 400 200 Patient 150 lb 155 lb Weight Weight Bed scale Reported by Patient Measurement Method Physical Exam: tender over right inguinal region. pain with internal external rotation of hip. tender over right sacroiliac joint region. positive sensation to light touch right lower extremity. skin intact over right hip region. CT scan shows right sacral ala fracture with right inferior pubic rami fracture. There is also degenerative changes of right and left hip joints. Assessment/Plan Assessment/Plan Right sacral ala fracture and inferior pubic rami fracture - WBAT with walker - f/u in 6 weeks for x-rays of right pelvis - pain meds for pain control Consult Acknowledgment - Thank you for your consult request.
--- NOTE | 2017-10-07 10:42 | Discharge Summary ---
Visit Information Visit Dates Admission Date: 10/06/17 Discharge Date: 10/09/17 Hospital Course Course Attending Physician: Lorraine Ruiz MD Primary Care Physician: Rocky BALES,Wendy Hospital Course: 87 YO M with past medical history of previous CVA, diabetes, polymyalgia on chronic prednisone presents for evaluation after a fall. Presents from home after slipping and falling in front of his driveway while shoveling snow with pain and difficulty ambulating. There was no tingling or numbness or weakness of his extremities and he denies loss of consciousness, palpitations, chest pain, shortness of breath sounds, dizzines, confusion or head strike when he fell. He was able to get up and walked back into his house with his 's help . He denies fevers/chills, nausea, vomiting or diarrhea, cough or urinary symptoms in the preceeding days. He leads an active lifestyle and walks about 1 hr everyday. He is independent of his ADLs and ambulates without a cane or walker. Assessment 1. Rt sided Pubic rami and sacral ala fracture s/p mechanical fall Plan is for conservative management Weight bearing as tolerated with walker f/u in 6 weeks for x-rays of right pelvis pain meds for pain control Physical therapy at [facility] 2. Leukocyosis on admission, now resloved. Was likely reactive due to the stress of the trauma. Urine and blood cultures negative 3. Osteopenia on xray; low vit D level-18.9 Will start oral Vit D 50,000 IU weekly x 8 weeks (1st dose received in hospital) , then resume home dose of vitamin D at 1000 IU weekly Start Calcium 600mg BID Monitor vit D levels 4. Chronic conditions-HTN, DM, polymyalgia Continue his current home medications-see CMR Complications: none Allergies: Coded Allergies: No Known Allergies (10/06/17) Significant Procedures: EXAM TYPE: CAT - CT PELVIS WO IV CONTRAST IMPRESSION: 1. Acute fractures involving right inferior pubic ramus and anterior right sacral ala. 2. Age indeterminate subtle cortical step off right acetabulum pubic junction. 3. Age indeterminate cortical irregularity superior aspect body of the right pubic bone adjacent to the symphysis pubis. 4. Small hematoma medial pelvic soft tissues adjacent to the right inferior pubic ramus. Disposition Summary Disposition Principal Diagnosis: Rt sided Pubic rami and sacral ala fracture s/p mechanical fall Additional Diagnosis: Leukocyosis on admission, now resloved. Osteopenia on xray Chronic conditions-HTN, DM, polymyalgia Discharge Disposition: SNF Discharge Instructions General Discharge Information Code Status: Full Code Patient's Diet: Diabteic diet Patient's Activity: Weight bearing as tolerated with walker Follow-Up Instructions/Appts: Follow up with your PCP in 1 week Follow up with orthopedic surgeon in 6 weeks for x-rays of right pelvis Medications at Discharge Discharge Medications: Continue taking these medications: Glipizide (Glipizide XL) 2.5 MG TAB.ER.24 1 Tablet ORAL THREE TIMES DAILY Comments: 2.5MG AT 1200 AND 1800 Aspirin (Aspirin*) 81 MG TAB.CHEW 1 Tablet ORAL DAILY Comments: Last Taken: 10/09/17 Time: 1000 AM Cholecalciferol (Vitamin D3) (Vitamin D) 1,000 UNIT TABLET 1 Tablet ORAL DAILY Comments: Last Taken: 10/09/17 Time: 1000 AM Cyanocobalamin (Vitamin B-12) 1,000 MCG TABLET 1 Tablet ORAL DAILY Comments: Last Taken: 10/09/17 Time: 1000 AM Prednisone (Prednisone) 1 MG TABLET 3 Tablet ORAL DAILY Qty = 450 Comments: Last Taken: 10/09/17 Time: 1000 AM Losartan Potassium (Losartan Potassium) 25 MG TABLET 1 Tablet ORAL DAILY Qty = 90 Comments: Last Taken: 10/09/17 Time: 1000 AM Glipizide (Glipizide ER) 2.5 MG TAB.ER.24 1 Tablet ORAL DAILY Comments: NOT GIVEN IN HOSPITAL Start taking the following new medications: Enoxaparin Sodium (Lovenox) 40 MG/0.4 ML SYRINGE 0.4 Milliliters Inject into fatty tissue DAILY Qty = 30 No Refills Comments: Last Taken: 10/09/17 Time: 1000 AM Copies To: Wendy Hidalgo MD
[2017-10-07 14:48] VITALS: BP 144/68
[2017-10-07 21:28] VITALS: BP 138/60
[2017-10-08 05:52] VITALS: BP 128/64
--- NOTE | 2017-10-08 08:10 | PN- Housestaff ---
Isabelle BALES,Servando 10/08/17 0810: Subjective Follow-up For: Pelvis fracture Subjective: Patient was seen and examined at bedside. He is resting comfortably. He had no acute events overnight. His son is at bedside. He reports hip/groin pain with lower body motion but is comfortable at rest. He denies any nausea, vomiting, fever, chills, chest pain, shortness of breath. Review of Systems Constitutional: Reports: no symptoms. EENTM: Reports: no symptoms. Cardiovascular: Reports: no symptoms. Respiratory: Reports: no symptoms. Gastrointestinal: Reports: no symptoms. Genitourinary: Reports: no symptoms. Musculoskeletal: Reports: see HPI. Skin: Reports: no symptoms. Objective Last 24 Hrs of Vital Signs/I&O Vital Signs Date Time Temp Pulse Resp B/P B/P Pulse O2 O2 Flow FiO2 Mean Ox Delivery Rate 10/08 0756 83 128/64 10/08 0552 97.8 83 20 128/64 94 Room Air 10/07 2128 98.3 92 17 138/60 93 Room Air 10/07 1448 97.5 86 18 144/68 91 Room Air 10/07 1050 86 130/56 10/07 1028 Room Air Room Air 10/07 0902 Room Air Room Air Intake & Output 10/08 1600 10/08 0800 10/08 0000 Intake Total 490 180 Output Total 550 400 Balance -60 -220 Intake, IV 10 Intake, Oral 480 180 Number 0 0 Bowel Movements Output, Urine 550 400 Physical Exam General Appearance: Alert, Cooperative, No Acute Distress, oriented to person and time but not place, knows we are in a hospital Skin Temp/Moisture Exam: Warm/Dry HEENT: Atraumatic Cardiovascular: Regular Rate, Normal S1, Normal S2 Lungs: Clear to Auscultation, Normal Air Movement Abdomen: Normal Bowel Sounds, Soft, No Tenderness Neurological: Normal Speech, Normal Tone, Sensation Intact Extremities: pain with active and passive motion of the hips, nonTTP Current Medications: Current Medications Sig/Anthony Start time Last Medication Dose Route Stop Time Status Admin Acetaminophen 975 MG Q8P PRN 10/07 0945 AC PO Acetaminophen 650 MG Q6PRN PRN 10/06 1445 DC 10/07 PO 0515 Acetaminophen 1,000 MG Q6P PRN 10/06 1430 DC N/A 1 UNIT IV Aspirin 81 MG DAILY 10/07 1000 AC 10/08 PO 0756 Calcium 600 MG BID 10/07 2200 AC 10/08 PO 0756 Calcium 600 MG BID 10/07 1433 DC 10/07 PO 1737 Cholecalciferol 1,000 IU DAILY 10/07 1000 AC 10/08 PO 0756 Cyanocobalamin 1,000 MCG DAILY 10/07 1000 AC 10/08 PO 0756 Docusate Sodium 100 MG DAILY NEEDED PRN 10/07 0700 AC PO Enoxaparin Sodium 40 MG DAILY 10/07 1000 AC 10/08 SC 0757 Ergocalciferol 50,000 IU Q168 10/07 1515 AC 10/07 PO 1737 Heparin Sodium 5,000 UNIT Q8 10/06 1439 DC 10/07 (Porcine) SC 0514 Ibuprofen 400 MG Q6P PRN 10/06 1445 AC PO Insulin Aspart 0 TIDAC 10/06 1700 AC 10/07 SC 1707 Losartan Potassium 25 MG DAILY 10/07 1000 AC 10/08 PO 0756 Oxycodone/ 0.5 TAB Q6P PRN 10/07 1200 AC 10/08 Acetaminophen PO 0440 Prednisone 3 MG DAILY 10/07 1000 AC 10/08 PO 0756 Senna 187 MG AT BEDTIME NEED.. 10/07 0700 AC PO Assessment/Plan Assessment: Mr. 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 Problem List: 1. Fragility fracture of the pelvis, type III 2. Leukocytosis, resolved 3. Sinus tachycardia 4. Fever, resolved #Fragility fracture of the pelvis, type III: Patient presents after a mechanical fall found to have a displaced right inferior pubic ramus and sacral ala fracture. His advanced age and chronic prednisone therapy likely contributed to his risk for fracture. We will likely pursue conservative management and early ambulation. -Pain control, avoid opioids if possible -Appreciate orthopedic surgery recommendations -PT recommends STR #Leukocytosis, resolved: Patient has an unexplained leukocytosis, fever, and was slightly tachycardic on exam. Urinalysis was negative. There does not seem to be any source of infection at this time. He has remained afebrile since admission, tachycardia has resolved. -Urine and blood cultures, currently no growth -Continue to monitor #Chronic medical problems: -Continue home prednisone, aspirin, losartan, vitamin D -Hold oral hypoglycemics -Insulin sliding scale DVT prophylaxis with enoxaparin Consistent carbohydrate 2 diet Full code Problem List: 1. Fracture of right inferior pubic ramus 2. 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 He was febrile to 100 initially with WBC 17, but reports no infectious symptoms. Patient feels well today. No pain at rest, but has right pelvic pain when moving. Afebrile overnight, WBC improved to 10, cultures negative. 1. Right inferior pubic ramus and anterior lateral right sacral ala frature, acute 2. Fall, initial 3. Fever of unknown etiology 4. Leukocytosis Plan - Continue general medicine - Orthopedic consult - Pain control with Motrin and Tylenol, if severe pain then Percocet 1/2 tab - Bowel regimen - PT eval - Continue home mediations - DVT PPx - Anticipated discharge to [facility] on 10/09
[2017-10-08 14:52] VITALS: BP 110/60
[2017-10-08 22:22] VITALS: BP 112/60
[2017-10-09 06:51] VITALS: BP 150/60
--- NOTE | 2017-10-09 09:07 | PN- Housestaff ---
Isabelle BALES,Servando 10/09/17905: Subjective Follow-up For: Pelvis fracture Subjective: Patient was seen and examined at bedside. He is resting comfortably. He had no acute events overnight. Pain is well-controlled rest but he continues to have pain with movement of his lower extremities. He denies any nausea, vomiting, fever, chills, chest pain, shortness of breath. Review of Systems Constitutional: Reports: no symptoms. EENTM: Reports: no symptoms. Cardiovascular: Reports: no symptoms. Respiratory: Reports: no symptoms. Gastrointestinal: Reports: no symptoms. Genitourinary: Reports: no symptoms. Musculoskeletal: Reports: see HPI, joint pain. Objective Last 24 Hrs of Vital Signs/I&O Vital Signs Date Time Temp Pulse Resp B/P B/P Pulse O2 O2 Flow FiO2 Mean Ox Delivery Rate 10/09 0651 98.3 80 20 150/60 94 Room Air 10/08 2222 98.2 63 19 112/60 95 Room Air 10/08 1452 98.2 73 18 110/60 96 Intake & Output 10/09 1600 10/09 0800 10/09 0000 Intake Total Output Total 450 250 Balance -450 -250 Output, Urine 450 250 Physical Exam General Appearance: Alert, Cooperative, No Acute Distress Skin Temp/Moisture Exam: Warm/Dry Cardiovascular: Regular Rate, Normal S1, Normal S2 Lungs: Clear to Auscultation, Normal Air Movement Abdomen: Normal Bowel Sounds, Soft, No Tenderness Neurological: Normal Speech, Normal Tone, Sensation Intact Extremities: Pain with active and passive ROM of the LEs bilatearally Current Medications: Current Medications Sig/Anthony Start time Last Medication Dose Route Stop Time Status Admin Acetaminophen 975 MG Q8P PRN 10/07 0945 AC PO Aspirin 81 MG DAILY 10/07 1000 AC 10/08 PO 0756 Calcium 600 MG BID 10/07 2200 AC 10/08 PO 2118 Cholecalciferol 1,000 IU DAILY 10/07 999 AC 10/08 PO 0756 Cyanocobalamin 1,000 MCG DAILY 10/07 1000 AC 10/08 PO 0756 Docusate Sodium 100 MG DAILY NEEDED 10/09 0700 AC 10/09 PO 0554 Docusate Sodium 100 MG DAILY NEEDED PRN 10/07 0700 DC PO 10/09 0659 Enoxaparin Sodium 40 MG DAILY 10/07 999 AC 10/08 SC 0757 Ergocalciferol 50,000 IU Q168 10/07 1515 AC 10/07 PO 1737 Ibuprofen 400 MG Q6P PRN 10/06 1445 AC PO Insulin Aspart 0 TIDAC 10/06 1700 AC 10/09 SC 0806 Losartan Potassium 25 MG DAILY 10/07 1000 AC 10/08 PO 0756 Oxycodone/ 0.5 TAB Q6P PRN 10/07 1200 AC 10/08 Acetaminophen PO 1412 Prednisone 3 MG DAILY 10/07 1000 AC 10/08 PO 0756 Senna 187 MG AT BEDTIME 10/09 2200 AC PO Senna 187 MG AT BEDTIME NEED.. 10/07 0700 DC PO Assessment/Plan Assessment: Mr. 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 Problem List: 1. Fragility fracture of the pelvis, type III 2. Leukocytosis, resolved 3. Sinus tachycardia 4. Fever, resolved #Fragility fracture of the pelvis, type III: Patient presents after a mechanical fall found to have a displaced right inferior pubic ramus and sacral ala fracture. His advanced age and chronic prednisone therapy likely contributed to his risk for fracture. We will pursue conservative management and early ambulation. -Pain control, avoid opioids if possible -Appreciate orthopedic surgery recommendations -PT recommends STR -Sable for DC to STR with follow-up with orthopedics in 6 weeks #Leukocytosis, resolved: Patient has an unexplained leukocytosis, fever, and was slightly tachycardic on exam. Urinalysis was negative. There does not seem to be any source of infection at this time. He has remained afebrile since admission, tachycardia has resolved. -Urine and blood cultures, currently no growth -Continue to monitor #Chronic medical problems: -Continue home prednisone, aspirin, losartan, vitamin D -Hold oral hypoglycemics -Insulin sliding scale DVT prophylaxis with enoxaparin Consistent carbohydrate 3 diet Full code Problem List: 1. Fracture of right inferior pubic ramus 2. Gait instability Pain Ratin Pain Location: pain well controlled at rest Pain Goal: Pain 4 or less Pain Plan: pain pathway Tomorrow's Labs & Rationales: none Discharge Plan Discharge Disposition: STR/NH Stable for Discharge? 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 He was febrile to 100 initially with WBC 17, but reports no infectious symptoms. Patient feels well today. No pain at rest, but has right pelvic pain when moving. Afebrile overnight, WBC improved to 10, cultures negative. 1. Right inferior pubic ramus and anterior lateral right sacral ala frature, acute 2. Fall, initial 3. Fever of unknown etiology 4. Leukocytosis Plan - Discharge to [facility] - Orthopedic consult - Pain control with Motrin and Tylenol, if severe pain then Percocet 1/2 tab - Bowel regimen - Continue home mediations
[2017-10-09 14:23] VITALS: BP 150/60
[2017-10-09 14:57] VITALS: BP 122/62
== END 2017-10-09 15:00 | DRG 552 ==
LOC: ERH 08:53 → ERHI 14:16 → 2NB 14:16 → ENRESERV 16:56 → 2NB 17:22 → ENTRNSPT 17:23 → EDTRNSPTSTS 17:40 → EDTRNSPT 17:40 → CMPTRNSPT 17:56 → 2NB 18:02 → ENPENDDIS 10-09 13:06 → 2NB 10-09 15:00
PROVIDERS: Physician Assistant Medical; Student in an Organized Health Care Education/Training Program
DX: S32.16XA Type 3 fracture of sacrum, initial encounter for closed fracture (principal); S32.591A Other specified fracture of right pubis, initial encounter for closed fracture; E11.9 Type 2 diabetes mellitus without complications; I69.919 Unspecified symptoms and signs involving cognitive functions following unspecified cerebrovascular disease; D72.829 Elevated white blood cell count, unspecified; M35.3 Polymyalgia rheumatica; M85.80 Other specified disorders of bone density and structure, unspecified site; Z79.84 Long term (current) use of oral hypoglycemic drugs; W00.0XXA Fall on same level due to ice and snow, initial encounter; Y93.H1 Activity, digging, shoveling and raking; R00.0 Tachycardia, unspecified; Z79.52 Long term (current) use of systemic steroids
CPT/HCPCS: 2NBSP; 36592; 71045; 72170; 73502-RT; 73562-RT; 73610-RT; 81001; 82436; 87040; 87086; 87804; 87804-59; 93005; 93010; 97110-GO; 97112-GO; 97116-GO; 97161-GP; 97530-GO; J1644; J1650; J3101; J3490